=== PATIENT | female | born 1980 | race Caucasian/White ===

== ENCOUNTER 2017-12-10 10:54 | Emergency (ER) | payer MEDICAID ==
[~2017-12-10] VITALS: Ht 157.5 cm; Wt 92.0 kg
[2017-12-10 10:58] VITALS: BP 119/80; PULSE 102; RESP 22; TEMP 98.8; O2SAT 98
--- NOTE | 2017-12-10 12:02 | RADRPT ---
EXAM DATE/TIME: 12/10/2017 11:55 [place] COMPARISON: None. INDICATIONS : Shortness of breath. Pain in posterior lower chest. MEDICAL HISTORY : Chronic bronchitis. SURGICAL HISTORY : None. ENCOUNTER: Initial ACUITY: 2 weeks PAIN SCORE: 4/10 LOCATION: Bilateral chest FINDINGS: PA and lateral views of the chest demonstrate the lungs to be symmetrically aerated without evidence of mass, infiltrate or effusion. The cardiomediastinal contours are unremarkable. Osseous structure s are intact. CONCLUSION: No acute disease. No previous studies available for comparison. Timothy Berry MD FACR on December 10, 2017 at 11:59 Board Certified Radiologist. This report was verified electronically.
[2017-12-10] MEDS ORDERED: CIPR-9 PO (12:21)
[2017-12-10] MEDS ORDERED: RESP: ALBUTEROL 2.5 MG/IPRATROPIUM 0.5 MG NEB (SCH) NEB ONE (12:45)
[2017-12-10] MEDS ORDERED: RESP: LIDOCAINE HCL 4% PF 5 ML NEB NEB ONE (12:45)
[2017-12-10] MEDS ORDERED: PRED10 PO (12:57)
[2017-12-10] MEDS ORDERED: HYDR5SYP11 PO (12:57)
[2017-12-10] MEDS ORDERED: NEBULIZER1 MI1 (12:57)
[2017-12-10] MEDS ORDERED: ALBU0.08 NEB (12:57)
--- NOTE | 2017-12-10 12:57 | PD ---
HPI Chief Complaint: Respiratory Symptoms Time Seen by Provider: 12:03 Travel History International Travel<30 days: No Contact w/Intl Traveler<30days: No Traveled to known affect area: No History of Present Illness HPI 37-year-old woman presents emerged from complaining of shortness of breath and cough ongoing for the past 2 months or so. Just some chest pain from the coughing as well. States she has been diagnosed with bronchitis. She has had 2 courses of antibiotic treatment with steroids and bronchodilators. Symptoms have been ongoing for the past several months. History of some breathing problems. Never formally diagnosed. Recurrent episodes of bronchitis or reactive airway disease. History Past Medical History Narrative Medical History of tobacco use in the past, still vapes LMP: 11/11/17 Social History Tobacco Use: Yes Allergies-Medications (Allergen,Severity, Reaction): Coded Allergies: No Known Allergies (Unverified , 12/10/17) Reported Meds & Prescriptions Reported Meds & Active Scripts Active Reported Cipro (Ciprofloxacin HCl) 500 Mg Tab 500 Mg PO BID Review of Systems Except as stated in HPI: all other systems reviewed are Neg Physical Exam Narrative GENERAL: Well-appearing 37-year-old woman, frequent cough, no acute distress per SKIN: Focused skin assessment warm/dry. HEAD: Atraumatic. Normocephalic. EYES: Pupils equal and round. No scleral icterus. No injection or drainage. ENT: No nasal bleeding or discharge. Mucous membranes pink and moist. NECK: Trachea midline. No JVD. CARDIOVASCULAR: Regular rate and rhythm. No murmur appreciated. RESPIRATORY: No accessory muscle use. Some wheezing. Frequent cough. Coarse breath sounds. GASTROINTESTINAL: Abdomen soft, non-tender, nondistended. Hepatic and splenic margins not palpable. MUSCULOSKELETAL: No obvious deformities. No clubbing. No cyanosis. No edema. NEUROLOGICAL: Awake and alert. No obvious cranial nerve deficits. Motor grossly within normal limits. Normal speech. PSYCHIATRIC: Appropriate mood and affect; insight and judgment normal. Data Data Last Documented VS Vital Signs Date Time Temp Pulse Resp B/P (MAP) Pulse Ox O2 Delivery O2 Flow Rate FiO2 12/10/17 10:58 98.8 102 22 119/80 (93) 98 Orders Orders Chest, Pa & Lat (12/10/17 ) Lidocaine Pf 4% Neb (Lidocaine Pf 4% Neb (12/10/17 12:45) Albuterol-Ipratropium Neb (Duoneb Neb) (12/10/17 12:45) [facility] Medical Decision Making Medical Screen Exam Complete: Yes Emergency Medical Condition: Yes Interpretation(s) X-rays negative Differential Diagnosis Reactive airway disease, bronchitis, pertussis, allergies, other Narrative Course Medical decision making 37-year-old woman presents to the emergency department complaining of cough, chest tightness, trouble breathing. Some wheezing on exam. Seem to be protracted cough. Etiology is not clear. Does not really sound like pertussis or whooping cough although it is possible. I do not think she needs another course of antibiotics. Recommend prolonged course of steroids, she feels like her inhaler is not working so we will give her prescription for nebulizer. Also give her a stronger cough suppressant. She has been referred to pulmonology already. Recommend outpatient follow-up. Diagnosis Primary Impression: Chronic bronchitis Additional Instructions: Take steroids as prescribed. Use albuterol nebulizer as prescribed. Use Hycodan syrup sparingly as needed for cough. Drink plenty fluids stay well-hydrated. Follow-up with your primary doctor for referral to a specialist for further evaluation. Med/Other Pt SpecificInfo: Prescription(s) given Scripts Nebulizer (Nebulizer) 1 Mis Mis EA .XX DIRECTED for Breathing Treatment, #1 0 Refills Prov: Stewart Esquivel MD 12/10/17 Hydrocodone Bit/Homatrop Me-Br (Hydrocodone Compound Syrup) 5 Mg-1.5 Mg/5 Ml Syrup 5 ML PO Q4-6H Y for COUGH, #120 ML Prov: Stewart Esquivel MD 12/10/17 Albuterol Neb (Albuterol Neb) 2.5 Mg/3 Ml Neb 2.5 MG NEB Q4HR NEB Y for SHORTNESS OF BREATH, #60 NEBULE 0 Refills Prov: Stewart Esquivel MD 12/10/17 Prednisone (Prednisone) 10 Mg Tab 10 MG PO DAILY, #70 TAB 0 Refills 40 mg daily 1 week then 30 mg daily 1 week then 20 mg daily 1 week then 10 mg daily 1 week Prov: Stewart Esquivle MD 12/10/17 Disposition: 01 DISCHARGE HOME Condition: Stable Stewart Esquivel MD Dec 10, 2017 12:57
[2017-12-10] MEDS ORDERED: HYDR5SYP10 PO (16:43)
== END 2017-12-10 13:19 | disposition home or self-care (01) ==
LOC: NEPD 10:54
DX: J42 Unspecified chronic bronchitis (principal)
CPT/HCPCS: 71046; 94664; 99283